=== PATIENT | female | born 1995 | race Caucasian/White ===

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

== ENCOUNTER 2017-10-30 15:28 | Inpatient (IN) | payer OTHER ==
[~2017-10-30] VITALS: Ht 172.7 cm; Wt 64.9 kg
[2017-10-30 16:18] LABS: UA SPECIFIC GRAVITY <=1.005 (1.005-1.035); microscopic required? YES; urine erythrocyte NEGATIVE (NEGATIVE)
[2017-10-30 16:33] LABS: CALCIUM 8.8 mg/dL (8.5-10.1); CARBON DIOXIDE 22.9 mmol/L (21-32); CHLORIDE SERUM 103 mmol/L (98-107); CREATININE SERUM 0.6 mg/dL (0.6-1.0); GFR1 > 60 mL/min; GLUCOSE SERUM 82 mg/dL (74-106); POTASSIUM SERUM 3.5 mmol/L (3.5-5.1); SODIUM SERUM 139 mmol/L (136-145)
[2017-10-30 16:34] LABS: BASOPHIL % 0.3 % (0-2); PLATELET COUNT 231 x10^3mcL (130-400)
[2017-10-30 16:37] LABS: ALKALINE PHOSPHATASE 59 U/L (46-116); ALT/SGPT 31 U/L (14-59); AST/SGOT 25 U/L (15-37)
[2017-10-30 16:38] LABS: ALBUMIN 3.1 g/dL (3.4-5.0); TOTAL PROTEIN, SERUM 8.4 g/dL (6.4-8.2)
[2017-10-30 16:44] LABS: RED CELL DISTRIBUTION WIDTH 19.1 % (11.5-14.5)
[2017-10-30] MEDS ORDERED: PRENATAL ONE D1 EACH PO (18:04)
[2017-10-30 18:52] VITALS: BP 103/61
[2017-10-30 19:10] LABS: CHOLESTEROL/HDL RATIO 2.3; MAGNESIUM 1.9 mg/dL (1.8-2.4); PHOSPHOROUS 3.6 mg/dL (2.5-4.9)
[2017-10-30 19:14] LABS: T3 TOTAL 1.63 ng/mL
[2017-10-30 19:20] LABS: FREE T4 0.92 ng/dL (0.76-1.46); FREE THYROXINE INDEX 2.3 ug/dL (1.4-4.5); T4(THYROXINE) 11.6 ug/dL (4.7-13.3)
[2017-10-30 21:54] VITALS: BP 102/54
[2017-10-31 05:39] VITALS: BP 88/52
[2017-10-31 06:48] LABS: BASOPHIL % 0.5 % (0-2); PLATELET COUNT 189 x10^3mcL (130-400)
[2017-10-31 07:03] LABS: CARBON DIOXIDE 21.5 mmol/L (21-32); CHLORIDE SERUM 108 mmol/L (98-107); CREATININE SERUM 0.5 mg/dL (0.6-1.0); GFR1 > 60 mL/min; GLUCOSE SERUM 76 mg/dL (74-106); MAGNESIUM 1.7 mg/dL (1.8-2.4); PHOSPHOROUS 4.1 mg/dL (2.5-4.9); POTASSIUM SERUM 3.4 mmol/L (3.5-5.1); SODIUM SERUM 140 mmol/L (136-145)
[2017-10-31 07:05] LABS: ALBUMIN 2.3 g/dL (3.4-5.0)
[2017-10-31 07:09] LABS: RED CELL DISTRIBUTION WIDTH 18.4 % (11.5-14.5)
[2017-10-31 08:04] VITALS: Ht 172.7 cm; Wt 64.9 kg
[2017-10-31 09:43] VITALS: BP 99/57
[2017-10-31] MEDS ORDERED: AMOXICILLIN/CLA1 TA6 PO (13:29)
[2017-10-31] MEDS ORDERED: LAC PO (13:29)
[2017-10-31 13:34] VITALS: BP 92/57
[2017-10-31 13:44] VITALS: BP 92/57
[2017-10-31 14:15] LABS: AMPHETAMINE QUAL UR NONE DETECTED (NEG <=1000)
== END 2017-10-31 16:14 | disposition home or self-care (01) | DRG 566 ==
LOC: ED 15:28 → DU 17:41
PROVIDERS: Emergency Medicine; Family Medicine
DX: O23.512 Infections of cervix in pregnancy, second trimester (principal); E43 Unspecified severe protein-calorie malnutrition; E87.8 Other disorders of electrolyte and fluid balance, not elsewhere classified; E83.42 Hypomagnesemia; O26.892 Other specified pregnancy related conditions, second trimester; E83.51 Hypocalcemia; D64.9 Anemia, unspecified; S39.013A Strain of muscle, fascia and tendon of pelvis, initial encounter; E87.6 Hypokalemia; O99.012 Anemia complicating pregnancy, second trimester; O23.42 Unspecified infection of urinary tract in pregnancy, second trimester; O25.12 Malnutrition in pregnancy, second trimester; O99.282 Endocrine, nutritional and metabolic diseases complicating pregnancy, second trimester; X58.XXXA Exposure to other specified factors, initial encounter; Y93.89 Activity, other specified; Y92.89 Other specified places as the place of occurrence of the external cause; Y99.8 Other external cause status; O99.512 Diseases of the respiratory system complicating pregnancy, second trimester; Z3A.18 18 weeks gestation of pregnancy; J45.909 Unspecified asthma, uncomplicated
CPT/HCPCS: 84439; 87491; 87591; J0696; J3490; J7030; Q0092

== ENCOUNTER 2019-05-21 01:39 | Emergency (ER) | payer MEDICAID ==
[~2019-05-21] VITALS: Ht 170.2 cm; Wt 61.2 kg
[~2019-05-21 01:39] MED LIST: AMOXICILLIN/CLA1 TA6 PO; LAC PO; PRENATAL ONE D1 EACH PO
[2019-05-21 01:51] VITALS: Ht 170.2 cm; Wt 61.2 kg
[2019-05-21 05:08] VITALS: BP 128/84
== END 2019-05-21 05:08 | disposition home or self-care (01) ==
LOC: ED 01:39
DX: O26.892 Other specified pregnancy related conditions, second trimester (principal); R51 Headache; J45.909 Unspecified asthma, uncomplicated; Z3A.19 19 weeks gestation of pregnancy
CPT/HCPCS: J2765; J7030

== ENCOUNTER 2019-10-15 22:09 | Emergency (ER) | payer MEDICAID ==
[~2019-10-15] VITALS: Ht 175.3 cm; Wt 68.0 kg
[2019-10-15 22:12] VITALS: Ht 175.3 cm; Wt 68.0 kg
[2019-10-16 04:55] VITALS: BP 96/52
== END 2019-10-16 04:55 | disposition home or self-care (01) ==
LOC: ED 22:09
DX: R22.0 Localized swelling, mass and lump, head (principal)
CPT/HCPCS: J0171; J1200; J2405; J2930; J3490; J7030

== ENCOUNTER 2020-05-03 23:38 | Emergency (ER) | payer OTHER ==
[~2020-05-03] VITALS: Ht 170.2 cm; Wt 73.0 kg
[2020-05-03 23:41] VITALS: Ht 170.2 cm; Wt 73.0 kg
[2020-05-04 02:59] VITALS: BP 98/68
== END 2020-05-04 02:59 | disposition home or self-care (01) ==
LOC: ED 23:38
DX: T78.40XA Allergy, unspecified, initial encounter (principal); J45.909 Unspecified asthma, uncomplicated; X58.XXXA Exposure to other specified factors, initial encounter
CPT/HCPCS: J0171; J1200; J2920; J3490